=== PATIENT | male | born 1990 | race Caucasian/White ===

== ENCOUNTER 2017-11-26 16:01 | Emergency (ER) | payer BC ==
[2017-11-26 16:14] VITALS: RESP 18; TEMP 97.6
[2017-11-26] MEDS ORDERED: KETOROLAC 30 MG/ML 1 ML VIAL IVP STA (16:20)
--- NOTE | 2017-11-26 16:22 | ED ---
Chest Pain HPI - General Chief Complaint: Chest Pain Stated Complaint: Chest pain Time Seen by Provider: 11/26/17 16:14 Source: patient, RN notes reviewed Mode of arrival: wheelchair Limitations: no limitations - History of Present Illness Initial Comments: This is a 27-year-old male presents emergency Department chief complaint of sudden onset of chest pain approximately 2 hours prior arrival. Patient states the pain is left-sided feels like a knife stabbing. He states it's worse when he takes a deep inspiration he has no shortness of breath. Patient is a prior cardiac history doesn't history of PE he states that it PE 5 years ago he states that they could not find a cause for it. Denies any recent traveling no leg pain or leg swelling. Patient denies any nausea, vomiting, diarrhea, constipation, fever or any recent URI symptoms. - Related Data Previous Rx's Medication Instructions Recorded Ibuprofen [Motrin] 600 mg PO Q8HR PRN #30 tab 11/26/17 Allergies Allergy/AdvReac Type Severity Reaction Status Date / Time No Known Allergies Allergy Verified 11/26/17 17:00 Review of Systems ROS Statement: Those systems with pertinent positive or pertinent negative responses have been documented in the HPI. ROS Other: All systems not noted in ROS Statement are negative. EKG Findings - EKG Comments: EKG Findings:: EKG performed at 16:27 normal sinus rhythm with a rate of 69 NC 126 QRS 86 QT/QTC 384/411 Past Medical History Past Medical History: Pulmonary Embolus (PE) History of Any Multi-Drug Resistant Organisms: None Reported Past Surgical History: No Surgical Hx Reported Past Psychological History: No Psychological Hx Reported Smoking Status: Former smoker Past Alcohol Use History: Occasional Past Drug Use History: None Reported General Exam Limitations: no limitations General appearance: alert, in no apparent distress Head exam: Present: atraumatic, normocephalic, normal inspection Eye exam: Present: normal appearance, PERRL, EOMI. Absent: scleral icterus, conjunctival injection, periorbital swelling ENT exam: Present: normal exam, normal oropharynx, mucous membranes moist Neck exam: Present: normal inspection, full ROM. Absent: tenderness, meningismus, lymphadenopathy Respiratory exam: Present: normal lung sounds bilaterally, chest wall tenderness. Absent: respiratory distress, wheezes, rales, rhonchi, stridor Cardiovascular Exam: Present: regular rate, normal rhythm, normal heart sounds. Absent: systolic murmur, diastolic murmur, rubs, gallop, clicks GI/Abdominal exam: Present: soft, normal bowel sounds. Absent: distended, tenderness, guarding, rebound, rigid Course Vital Signs 11/26/17 11/26/17 16:10 17:35 Temperature 97.6 F Pulse Rate 72 71 Respiratory 18 18 Rate Blood Pressure 117/77 130/78 O2 Sat by Pulse 98 97 Oximetry Chest Pain MDM - MDM 27-year-old male presented from for chest pain. Patient's pain is reproducible at this time he did have a complete workup including lab work, EKG and chest x- ray. There is no acute findings. He did have some reactive lymphocytes of mono was added which is negative. This most likely is viral URI with chest wall formation. Patient we discharged on anti-inflammatories. He did have a d- dimer which was negative and no concerns for PE. Disposition Clinical Impression: Chest wall pain Disposition: HOME SELF-CARE Condition: Stable Instructions: Chest Pain (ED), Costochondritis (ED) Additional Instructions: Please return to the Emergency Department if symptoms worsen or any other concerns. Prescriptions: Ibuprofen [Motrin] 600 mg PO Q8HR PRN #30 tab PRN Reason: Pain Is patient prescribed a controlled substance at d/c from ED?: No Referrals: Conner Beard MD [Primary Care Provider] - 1-2 days Time of Disposition: 17:53
[2017-11-26 16:46] LABS: Basophils % (A) 0 %; Eosinophils # (A) 0.3 k/uL (0-0.7); Eosinophils % (A) 2 %; HCT 45.5 % (39.0-53.0); HGB 15.9 gm/dL (13.0-17.5); Lymphocytes # (A) 4.9 k/uL (1.0-4.8); Lymphocytes % (A) 43 %; MCH 29.4 pg (25.0-35.0); MCHC 34.9 g/dL (31.0-37.0); MCV 84.3 fL (80.0-100.0); Monocytes # (A) 0.8 k/uL (0-1.0); Monocytes % (A) 7 %; Neutrophils # (A) 5.1 k/uL (1.3-7.7); Neutrophils % (A) 45 %; Platelet Count 244 k/uL (150-450); RDW 13.4 % (11.5-15.5); WBC 11.4 k/uL (3.8-10.6)
--- NOTE | 2017-11-26 16:57 | XR ---
EXAMINATION TYPE: XR chest 2V DATE OF EXAM: 11/26/2017 COMPARISON: NONE HISTORY: Left-sided chest pain. History of pulmonary embolus. TECHNIQUE: Frontal and lateral views of the chest are obtained. FINDINGS: There is no focal air space opacity, pleural effusion, or pneumothorax seen. The cardiac silhouette size is within normal limits. The osseous structures are intact. IMPRESSION: No acute cardiopulmonary process.
[2017-11-26 16:59] LABS: ALT 43 U/L (21-72); AST 23 U/L (17-59); Albumin 4.7 g/dL (3.5-5.0); Alkaline Phosphatase 50 U/L (38-126); Anion Gap 15 mmol/L; Blood Urea Nitrogen 13 mg/dL (9-20); Calcium 9.6 mg/dL (8.4-10.2); Carbon Dioxide 22 mmol/L (22-30); Chloride 108 mmol/L (98-107); D-Dimer <0.17 mg/L FEU (<0.60); Glucose 83 mg/dL (74-99); Magnesium 2.1 mg/dL (1.6-2.3); Partial Thromboplastin Time 23.7 sec (22.0-30.0); Potassium 4.1 mmol/L (3.5-5.1); Prothrombin Time 10.3 sec (9.0-12.0); Sodium 145 mmol/L (137-145); Total Bilirubin 0.7 mg/dL (0.2-1.3); Total Protein 7.1 g/dL (6.3-8.2)
[2017-11-26 17:02] LABS: Reactive Lymphocytes Present
[2017-11-26 17:36] VITALS: BP 130/78; PULSE 71
== END 2017-11-26 17:57 | disposition home or self-care (01) ==
LOC: EC 16:01
DX: R07.89 Other chest pain (principal); Z87.891 Personal history of nicotine dependence
CPT/HCPCS: 99285; 36415; 93005; 85379; 80053; 83735; 84484; 85025; 85610; 85730; 86308; 71046; J1885

== ENCOUNTER → 2019-08-23 | Outpatient (CLI) | payer BC ==
--- NOTE | 2019-08-24 18:51 | CT ---
EXAMINATION TYPE: CT sinus wo con DATE OF EXAM: 08/23/2019 COMPARISON: 03/10/2013 HISTORY: Chronic sinusitis and headaches. CT DLP: 673.2 mGycm. Automated Exposure Control for Dose Reduction was Utilized. TECHNIQUE: CT scan of the sinuses is performed without contrast, axial images are obtained, coronal r eformatted images are also reviewed. FINDINGS: Currently the paranasal sinuses and mastoid air cells in their visualized portions are well aerated. Thin osseous septum is seen of the inferior right maxillary sinus both anteriorly and posteriorly. Th ere is leftward nasal septal deviation with a 5 mm leftward nasal septal spur. The ostiomeatal comple xes are patent bilaterally. Slight right inferior nasal turbinate mucosal hypertrophy is seen. Orbits are symmetric. Extraocular muscles are unremarkable. Limited evaluation of the visualized port ions of the brain. Visualized calvarium appears intact. No acute fracture of the osseous structures. Temporomandibular joints are symmetric and unremarkable. Old fracture deformity of the maxillary spin e. IMPRESSION: 1. No current paranasal sinus disease. Ostiomeatal complexes are patent at this time. 2. Leftward nasal septal deviation and a 5 mm leftward nasal septal spur.
== END | disposition home or self-care (01) ==
LOC: RADCTMAIN 17:08
PROVIDERS: ATTEND Otolaryngology
DX: J34.2 Deviated nasal septum (principal)
CPT/HCPCS: 70486